=== PATIENT | male | born 1970 | race African-American/Black ===

== ENCOUNTER 2022-10-08 11:49 | Inpatient (IN) | payer MEDICAID, OTHER ==
[~2022-10-08] VITALS: Ht 172.7 cm; Wt 62.1 kg
[2022-10-08] MEDS ORDERED: VANCOMYCIN 1G PREMIX 200 ML IV ONE (12:15)
[2022-10-08] MEDS ORDERED: OSELTAMIVIR 75MG CAPSULE GT ONE (12:15)
[2022-10-08] MEDS ORDERED: ACETAMINOPHEN 325MG TABLET GT ONE (12:15)
[2022-10-08] MEDS ORDERED: PIPERACILLIN/TAZ 3.375G PREMIX 50 ML IV ONE (12:15)
[2022-10-08] MEDS ORDERED: SODIUM CHLORIDE 0.9% 1000ML BAG (SEPSIS BOLUS) IV ONE (12:15)
[2022-10-08 12:46] LABS: BASOPHILS % 0.8 % (0.0-2.0); EOSINOPHILS % 0.1 % (0.0-5.0); HEMOGLOBIN. 10.8 g/dL (14.0-18.0); LYMPHOCYTES % 10.9 % (20.0-50.0); MEAN CORPUSCULAR HEMOGLOBIN 28.3 pg (28.0-32.0); MEAN CORPUSCULAR VOLUME 89.1 fL (80.0-94.0); MEAN PLATELET VOLUME 8.5 fl (7.4-10.4); MONOCYTES % 5.9 % (2.0-8.0); NEUTROPHILS % 82.3 % (40.0-76.0); PLATELET 326 x1000/uL (130-400); RED BLOOD CELL COUNT 3.82 mill/uL (4.7-6.1); RED CELL DISTRIBUTION WIDTH 14.9 % (11.6-14.6)
[2022-10-08 12:55] LABS: CHLORIDE 130 mEq/L (98-107)
[2022-10-08 13:04] LABS: INR 1.7; PARTIAL THROMBOPLASTIN TIME 36.7 sec (23.4-31.0); PROTHROMBIN TIME 17.2 sec (9.6-11.0)
[2022-10-08] MEDS ORDERED: GUAIFENESIN 200MG/10ML SUGAR FREE UDC PO PRN (15:30)
[2022-10-08] MEDS ORDERED: ONDANSETRON HCL 4MG/2ML INJ IV PRN (15:30)
[2022-10-08] MEDS ORDERED: DEXTROSE 5% WATER 1,000 ML IV SCH (15:30)
[2022-10-08] MEDS ORDERED: CLONIDINE 0.1MG TABLET PO PRN (15:30)
[2022-10-08] MEDS ORDERED: IPRATROPIUM/ALBUTEROL 0.5-3(2.5)MG/3ML NEB HHN PRN (15:30)
[2022-10-08] MEDS ORDERED: DOCUSATE SODIUM 100MG CAPSULE PO PRN (15:30)
[2022-10-08] MEDS ORDERED: MAGNESIUM/ALUMINUM HYDROXIDE/SIMETHICONE 30ML UDC PO PRN (15:30)
[2022-10-08 15:49] LABS: BG BASE EXCESS 1.3 mmol/L (-2.0-2.0); BG CARBOXYHEMOGLOBIN 0.3 % (0.5-1.5); BG DEOXYHEMOGLOBIN 0.2 % (0.0-5.0); BG FRACTION INSPIRED OXYGEN 100; BG HCO3 ACT 25.3 mmol/L (22.0-26.0); BG METHEMOGLOBIN 0.3 % (0.0-1.5); BG OXYGEN SATURATION 99.8 % (92.0-98.5); BG OXYHEMOGLOBIN 99.2 % (94.0-97.0); BG PCO2 37.8 mmHg (35.0-45.0); BG PH 7.444 (7.350-7.450); BG PO2 365.3 mmHg (75.0-100.0); BG SAMPLE SITE RIGHT RADIAL; BG TOTAL HEMOGLOBIN 10.4 g/dL (12.0-18.0); BG VENT MODE VENT - AC
[2022-10-08] MEDS: DEXTROSE 5% WATER 1,000 ML IV SCH (16:12)
[2022-10-08 20:12] LABS: CLARITY URINE CLEAR (CLEAR); COLOR URINE YELLOW (YELLOW); KETONES URINE NEGATIVE (NEGATIVE); LEUKOCYTE ESTERASE URINE NEGATIVE (NEGATIVE); NITRITE URINE NEGATIVE (NEGATIVE); OCCULT BLOOD URINE 1+ (NEGATIVE); PH URINE 5.5 (4.5-8.0); PROTEIN URINE TRACE (NEGATIVE); SPECIFIC GRAVITY URINE 1.017 (1.005-1.030); UROBILINOGEN URINE 0.2 E.U./dL (0.2-1.0)
[2022-10-08] MEDS: ACETAMINOPHEN 325MG TABLET PO PRN (20:30)
[2022-10-08] MEDS: BLOOD SUGAR DIAGNOSTIC STRIP TEST SCH (21:14)
[2022-10-08] MEDS: INSULIN LISPRO 100 UNITS/ML SUBCUT SCH (21:14)
[2022-10-08] MEDS ORDERED: DEXTROSE 50% WATER 50ML SYRINGE IV PRN (21:15)
[2022-10-09] MEDS: DEXTROSE 5% WATER 1,000 ML IV SCH ×3 (03:03→22:21)
[2022-10-09] MEDS: MIDODRINE HCL 5MG TABLET GT SCH ×3 (03:21→18:22)
[2022-10-09 05:26] LABS: BASOPHILS % 0.7 % (0.0-2.0); EOSINOPHILS % 0.1 % (0.0-5.0); HEMOGLOBIN. 8.4 g/dL (14.0-18.0); LYMPHOCYTES % 10.8 % (20.0-50.0); MEAN CORPUSCULAR HEMOGLOBIN 28.4 pg (28.0-32.0); MEAN CORPUSCULAR VOLUME 88.6 fL (80.0-94.0); MEAN PLATELET VOLUME 9.4 fl (7.4-10.4); MONOCYTES % 6.6 % (2.0-8.0); NEUTROPHILS % 81.8 % (40.0-76.0); PLATELET 264 x1000/uL (130-400); RED BLOOD CELL COUNT 2.94 mill/uL (4.7-6.1); RED CELL DISTRIBUTION WIDTH 14.8 % (11.6-14.6)
[2022-10-09 05:32] LABS: CHLORIDE 120 mEq/L (98-107)
[2022-10-09 05:52] LABS: T4 FREE 1.05 ng/dL (0.76-1.46)
[2022-10-09] MEDS ORDERED: IPRATROPIUM/ALBUTEROL 0.5-3(2.5)MG/3ML NEB HHN PRN (06:00)
[2022-10-09] MEDS: BLOOD SUGAR DIAGNOSTIC STRIP TEST SCH ×3 (06:00→22:21)
[2022-10-09] MEDS: INSULIN LISPRO 100 UNITS/ML SUBCUT SCH ×3 (06:00→22:00)
[2022-10-09] MEDS: PIPERACILLIN/TAZ 3.375G PREMIX 50 ML IV SCH ×3 (07:07→21:59)
[2022-10-09] MEDS: ACETAMINOPHEN 325MG TABLET PO PRN ×3 (07:15→22:00)
[2022-10-09] MEDS: IPRATROPIUM/ALBUTEROL 0.5-3(2.5)MG/3ML NEB HHN SCH ×3 (07:59→20:11)
[2022-10-09] MEDS: KCL 20MEQ/100ML PREMIX 100 ML IV SCH ×2 (09:43→11:27)
[2022-10-09] MEDS: PANTOPRAZOLE SODIUM 40 MG/VIAL IV SCH (09:43)
[2022-10-09] MEDS: VANCOMYCIN 1G PREMIX 200 ML IV SCH ×2 (11:43→21:58)
[2022-10-09 16:30] VITALS: BP 119/76
[2022-10-09 18:00] VITALS: BP 116/73
[2022-10-09] MEDS: ENOXAPARIN 40MG/0.4ML SYR SUBCUT SCH (18:21)
[2022-10-09 20:00] VITALS: BP_SYST 134; BP_SYST 137; BP_DIAS 72; BP_DIAS 73
[2022-10-09] MEDS ORDERED: FAMO-135 GT (21:15)
[2022-10-09] MEDS ORDERED: GLYC2TAB21 GT (21:15)
[2022-10-09] MEDS ORDERED: AMAN100T GT (21:15)
[2022-10-09] MEDS ORDERED: DOCU-138 GT (21:15)
[2022-10-09] MEDS ORDERED: ENOX40SY27 SQ (21:15)
[2022-10-09] MEDS ORDERED: TERA2CAP4 GT (21:16)
[2022-10-09 22:00] VITALS: BP 105/60
[2022-10-10] VITALS (12 sets, daily range): BP systolic 99–126; BP diastolic 51–77
[2022-10-10] MEDS: IPRATROPIUM/ALBUTEROL 0.5-3(2.5)MG/3ML NEB HHN SCH ×4 (01:51→20:19)
[2022-10-10] MEDS: PIPERACILLIN/TAZ 3.375G PREMIX 50 ML IV SCH (05:21)
[2022-10-10] MEDS: INSULIN LISPRO 100 UNITS/ML SUBCUT SCH ×3 (05:39→22:00)
[2022-10-10] MEDS: BLOOD SUGAR DIAGNOSTIC STRIP TEST SCH ×3 (05:40→22:37)
[2022-10-10 08:25] LABS: BASOPHILS % 0.5 % (0.0-2.0); EOSINOPHILS % 0.3 % (0.0-5.0); HEMATOCRIT. 24.4 % (42.0-52.0); HEMOGLOBIN. 7.9 g/dL (14.0-18.0); MEAN CORPUSCULAR HEMOGLOBIN 28.4 pg (28.0-32.0); MEAN CORPUSCULAR VOLUME 87.7 fL (80.0-94.0); MONOCYTES % 6.3 % (2.0-8.0); NEUTROPHILS % 83.9 % (40.0-76.0); PLATELET 219 x1000/uL (130-400); RED BLOOD CELL COUNT 2.79 mill/uL (4.7-6.1); RED CELL DISTRIBUTION WIDTH 14.6 % (11.6-14.6)
[2022-10-10 08:33] LABS: CHLORIDE 119 mEq/L (98-107)
[2022-10-10 08:40] LABS: PHOSPHORUS 2.8 mg/dL (2.5-4.9)
[2022-10-10] MEDS: PANTOPRAZOLE SODIUM 40 MG/VIAL IV SCH (08:47)
[2022-10-10] MEDS: MIDODRINE HCL 5MG TABLET GT SCH ×3 (08:51→16:52)
[2022-10-10] MEDS: VANCOMYCIN 750MG PREMIX 150 ML IV SCH ×2 (10:23→21:29)
[2022-10-10] MEDS: ACETAMINOPHEN 325MG TABLET PO PRN ×2 (13:57→16:50)
[2022-10-10] MEDS: PIPERACILLIN/TAZOBACTAM 3.375G in DEXT 5% WATER 50ML IV SCH ×2 (13:57→21:25)
[2022-10-10] MEDS: DEXTROSE 5% WATER 1,000 ML IV SCH ×2 (13:58→17:44)
[2022-10-10] MEDS: KCL 20MEQ/100ML PREMIX 100 ML IV SCH ×2 (15:37→17:29)
[2022-10-10] MEDS: ENOXAPARIN 40MG/0.4ML SYR SUBCUT SCH (16:51)
[2022-10-11] VITALS (12 sets, daily range): BP systolic 90–146; BP diastolic 51–103
[2022-10-11] MEDS: IPRATROPIUM/ALBUTEROL 0.5-3(2.5)MG/3ML NEB HHN SCH ×4 (01:39→20:23)
[2022-10-11 06:00] LABS: CHLORIDE 112 mEq/L (98-107)
[2022-10-11] MEDS: INSULIN LISPRO 100 UNITS/ML SUBCUT SCH ×3 (06:00→21:13)
[2022-10-11] MEDS: BLOOD SUGAR DIAGNOSTIC STRIP TEST SCH ×3 (06:09→21:13)
[2022-10-11] MEDS: PIPERACILLIN/TAZOBACTAM 3.375G in DEXT 5% WATER 50ML IV SCH ×3 (06:09→21:13)
[2022-10-11 06:10] LABS: PHOSPHORUS 2.7 mg/dL (2.5-4.9)
[2022-10-11 06:13] LABS: BASOPHILS % 0.7 % (0.0-2.0); EOSINOPHILS % 0.5 % (0.0-5.0); HEMATOCRIT. 22.9 % (42.0-52.0); HEMOGLOBIN. 7.5 g/dL (14.0-18.0); LYMPHOCYTES % 7.4 % (20.0-50.0); MEAN CORPUSCULAR HEMOGLOBIN 28.4 pg (28.0-32.0); MONOCYTES % 7.4 % (2.0-8.0); PLATELET 213 x1000/uL (130-400); RED BLOOD CELL COUNT 2.63 mill/uL (4.7-6.1); RED CELL DISTRIBUTION WIDTH 14.8 % (11.6-14.6)
[2022-10-11 09:28] LABS: BG BASE EXCESS 2.8 mmol/L (-2.0-2.0); BG CARBOXYHEMOGLOBIN 0.3 % (0.5-1.5); BG DEOXYHEMOGLOBIN 2.9 % (0.0-5.0); BG FRACTION INSPIRED OXYGEN 40; BG HCO3 ACT 26.7 mmol/L (22.0-26.0); BG METHEMOGLOBIN 0.5 % (0.0-1.5); BG OXYGEN SATURATION 97.1 % (92.0-98.5); BG OXYHEMOGLOBIN 96.3 % (94.0-97.0); BG PCO2 38.1 mmHg (35.0-45.0); BG PH 7.464 (7.350-7.450); BG PO2 93.4 mmHg (75.0-100.0); BG SAMPLE SITE RIGHT RADIAL; BG TOTAL HEMOGLOBIN 8.6 g/dL (12.0-18.0); BG VENT MODE VENT - AC
[2022-10-11] MEDS: VANCOMYCIN 750MG PREMIX 150 ML IV SCH ×2 (09:49→21:13)
[2022-10-11] MEDS: MIDODRINE HCL 5MG TABLET GT SCH ×3 (09:50→16:56)
[2022-10-11] MEDS: PANTOPRAZOLE SODIUM 40 MG/VIAL IV SCH (09:50)
[2022-10-11] MEDS: ACETAMINOPHEN 325MG TABLET PO PRN ×2 (15:26→21:50)
[2022-10-11] MEDS: ENOXAPARIN 40MG/0.4ML SYR SUBCUT SCH (16:56)
[2022-10-12] VITALS (12 sets, daily range): BP systolic 103–137; BP diastolic 48–87
[2022-10-12] MEDS: IPRATROPIUM/ALBUTEROL 0.5-3(2.5)MG/3ML NEB HHN SCH ×4 (02:17→20:39)
[2022-10-12 05:24] LABS: CHLORIDE 116 mEq/L (98-107)
[2022-10-12] MEDS: INSULIN LISPRO 100 UNITS/ML SUBCUT SCH ×3 (05:35→21:39)
[2022-10-12] MEDS: BLOOD SUGAR DIAGNOSTIC STRIP TEST SCH ×3 (05:35→21:39)
[2022-10-12] MEDS: PIPERACILLIN/TAZOBACTAM 3.375G in DEXT 5% WATER 50ML IV SCH ×3 (05:36→21:39)
[2022-10-12] MEDS: PANTOPRAZOLE SODIUM 40 MG/VIAL IV SCH (09:04)
[2022-10-12] MEDS: VANCOMYCIN 750MG PREMIX 150 ML IV SCH ×2 (09:04→21:39)
[2022-10-12] MEDS: MIDODRINE HCL 5MG TABLET GT SCH ×3 (09:05→17:33)
[2022-10-12] MEDS: ENOXAPARIN 40MG/0.4ML SYR SUBCUT SCH (17:33)
[2022-10-13] VITALS (12 sets, daily range): BP systolic 92–120; BP diastolic 51–71
[2022-10-13] MEDS: IPRATROPIUM/ALBUTEROL 0.5-3(2.5)MG/3ML NEB HHN SCH ×4 (01:20→20:00)
[2022-10-13] MEDS: INSULIN LISPRO 100 UNITS/ML SUBCUT SCH ×3 (05:36→21:57)
[2022-10-13] MEDS: BLOOD SUGAR DIAGNOSTIC STRIP TEST SCH ×3 (05:36→21:57)
[2022-10-13] MEDS: PIPERACILLIN/TAZOBACTAM 3.375G in DEXT 5% WATER 50ML IV SCH (05:36)
[2022-10-13 08:02] LABS: BASOPHILS % 0.9 % (0.0-2.0); EOSINOPHILS % 0.2 % (0.0-5.0); HEMATOCRIT. 25.5 % (42.0-52.0); HEMOGLOBIN. 8.5 g/dL (14.0-18.0); LYMPHOCYTES % 8.1 % (20.0-50.0); MEAN CORPUSCULAR HEMOGLOBIN 28.9 pg (28.0-32.0); MEAN CORPUSCULAR VOLUME 86.6 fL (80.0-94.0); MEAN PLATELET VOLUME 9.2 fl (7.4-10.4); MONOCYTES % 8.2 % (2.0-8.0); NEUTROPHILS % 82.6 % (40.0-76.0); PLATELET 234 x1000/uL (130-400); RED BLOOD CELL COUNT 2.94 mill/uL (4.7-6.1); RED CELL DISTRIBUTION WIDTH 14.7 % (11.6-14.6)
[2022-10-13 08:04] LABS: CHLORIDE 112 mEq/L (98-107)
[2022-10-13 08:08] LABS: PHOSPHORUS 2.6 mg/dL (2.5-4.9)
[2022-10-13] MEDS: PANTOPRAZOLE SODIUM 40 MG/VIAL IV SCH (10:05)
[2022-10-13] MEDS: MIDODRINE HCL 5MG TABLET GT SCH ×3 (10:06→18:13)
[2022-10-13] MEDS: VANCOMYCIN 750MG PREMIX 150 ML IV SCH (10:22)
[2022-10-13] MEDS: MEROPENEM 1,000 MG in SODIUM CHLORIDE 0.9% 100 ML IV SCH ×2 (11:03→18:13)
[2022-10-13] MEDS: ENOXAPARIN 40MG/0.4ML SYR SUBCUT SCH (18:14)
[2022-10-14] VITALS (13 sets, daily range): BP systolic 97–151; BP diastolic 51–88
[2022-10-14] MEDS: MEROPENEM 1,000 MG in SODIUM CHLORIDE 0.9% 100 ML IV SCH ×3 (01:21→18:39)
[2022-10-14] MEDS: FAMOTIDINE 20MG/2ML VIAL IV SCH ×3 (01:22→21:55)
[2022-10-14] MEDS: ACETAMINOPHEN 325MG TABLET PO PRN ×2 (01:22→15:53)
[2022-10-14] MEDS: IPRATROPIUM/ALBUTEROL 0.5-3(2.5)MG/3ML NEB HHN SCH ×4 (01:58→20:02)
[2022-10-14 05:38] LABS: BASOPHILS % 1.3 % (0.0-2.0); EOSINOPHILS % 0.3 % (0.0-5.0); HEMATOCRIT. 24.3 % (42.0-52.0); HEMOGLOBIN. 7.9 g/dL (14.0-18.0); LYMPHOCYTES % 11.7 % (20.0-50.0); MEAN CORPUSCULAR HEMOGLOBIN 28.1 pg (28.0-32.0); MEAN CORPUSCULAR VOLUME 86.3 fL (80.0-94.0); MEAN PLATELET VOLUME 8.8 fl (7.4-10.4); MONOCYTES % 7.6 % (2.0-8.0); NEUTROPHILS % 79.1 % (40.0-76.0); PLATELET 248 x1000/uL (130-400); RED BLOOD CELL COUNT 2.82 mill/uL (4.7-6.1); RED CELL DISTRIBUTION WIDTH 14.8 % (11.6-14.6)
[2022-10-14] MEDS: INSULIN LISPRO 100 UNITS/ML SUBCUT SCH ×3 (06:00→21:56)
[2022-10-14] MEDS: BLOOD SUGAR DIAGNOSTIC STRIP TEST SCH ×3 (06:44→21:56)
[2022-10-14 07:09] LABS: CHLORIDE 112 mEq/L (98-107)
[2022-10-14 07:20] LABS: PHOSPHORUS 2.8 mg/dL (2.5-4.9)
[2022-10-14] MEDS: MIDODRINE HCL 5MG TABLET GT SCH ×4 (08:31→17:09)
[2022-10-14 08:46] LABS: BG BASE EXCESS 7.1 mmol/L (-2.0-2.0); BG DEOXYHEMOGLOBIN 2.9 % (0.0-5.0); BG FRACTION INSPIRED OXYGEN 30; BG HCO3 ACT 30.7 mmol/L (22.0-26.0); BG METHEMOGLOBIN 0.3 % (0.0-1.5); BG OXYGEN SATURATION 97.1 % (92.0-98.5); BG OXYHEMOGLOBIN 96.8 % (94.0-97.0); BG PCO2 39.3 mmHg (35.0-45.0); BG PO2 93.2 mmHg (75.0-100.0); BG SAMPLE SITE RIGHT RADIAL; BG TOTAL HEMOGLOBIN 8.4 g/dL (12.0-18.0); BG TOTAL RESPIRATORY RATE 20 b/min; BG VENT MODE VENT - SIMV
[2022-10-14] MEDS: ENOXAPARIN 40MG/0.4ML SYR SUBCUT SCH (15:54)
[2022-10-15] VITALS (12 sets, daily range): BP systolic 91–150; BP diastolic 49–89
[2022-10-15] MEDS: ACETYLCYSTEINE 100MG/ML 10% VIAL 4ML INH SCH ×4 (01:30→13:49)
[2022-10-15] MEDS: IPRATROPIUM/ALBUTEROL 0.5-3(2.5)MG/3ML NEB HHN SCH ×4 (01:32→20:19)
[2022-10-15] MEDS: MEROPENEM 1,000 MG in SODIUM CHLORIDE 0.9% 100 ML IV SCH ×3 (02:02→18:20)
[2022-10-15] MEDS: INSULIN LISPRO 100 UNITS/ML SUBCUT SCH ×3 (06:00→20:39)
[2022-10-15] MEDS: BLOOD SUGAR DIAGNOSTIC STRIP TEST SCH ×3 (06:00→20:39)
[2022-10-15 06:13] LABS: CHLORIDE 112 mEq/L (98-107)
[2022-10-15 06:19] LABS: PHOSPHORUS 2.9 mg/dL (2.5-4.9)
[2022-10-15 06:23] LABS: EOSINOPHILS % 0.1 % (0.0-5.0); HEMATOCRIT. 23.7 % (42.0-52.0); LYMPHOCYTES % 10.6 % (20.0-50.0); MEAN CORPUSCULAR VOLUME 85.3 fL (80.0-94.0); MEAN PLATELET VOLUME 8.6 fl (7.4-10.4); MONOCYTES % 6.7 % (2.0-8.0); NEUTROPHILS % 81.6 % (40.0-76.0); PLATELET 284 x1000/uL (130-400); RED BLOOD CELL COUNT 2.77 mill/uL (4.7-6.1); RED CELL DISTRIBUTION WIDTH 14.9 % (11.6-14.6)
[2022-10-15 08:58] LABS: BG BASE EXCESS 9.7 mmol/L (-2.0-2.0); BG CARBOXYHEMOGLOBIN 0.3 % (0.5-1.5); BG DEOXYHEMOGLOBIN 3.5 % (0.0-5.0); BG FRACTION INSPIRED OXYGEN 30; BG HCO3 ACT 33.8 mmol/L (22.0-26.0); BG OXYGEN SATURATION 96.5 % (92.0-98.5); BG OXYHEMOGLOBIN 96.2 % (94.0-97.0); BG PCO2 44.6 mmHg (35.0-45.0); BG PH 7.498 (7.350-7.450); BG PO2 86.5 mmHg (75.0-100.0); BG SAMPLE SITE RIGHT RADIAL; BG TOTAL HEMOGLOBIN 7.4 g/dL (12.0-18.0); BG VENT MODE VENT - SIMV
[2022-10-15] MEDS: MIDODRINE HCL 5MG TABLET GT SCH ×3 (09:36→18:15)
[2022-10-15] MEDS: FAMOTIDINE 20MG/2ML VIAL IV SCH ×2 (09:36→20:39)
[2022-10-15] MEDS: ENOXAPARIN 40MG/0.4ML SYR SUBCUT SCH (15:02)
[2022-10-15 19:11] LABS: BG BASE EXCESS 6.6 mmol/L (-2.0-2.0); BG CARBOXYHEMOGLOBIN 0.3 % (0.5-1.5); BG DEOXYHEMOGLOBIN 3.2 % (0.0-5.0); BG FRACTION INSPIRED OXYGEN 30; BG HCO3 ACT 30.6 mmol/L (22.0-26.0); BG METHEMOGLOBIN 0.3 % (0.0-1.5); BG OXYGEN SATURATION 96.8 % (92.0-98.5); BG OXYHEMOGLOBIN 96.2 % (94.0-97.0); BG PCO2 41.3 mmHg (35.0-45.0); BG PH 7.487 (7.350-7.450); BG PO2 90.7 mmHg (75.0-100.0); BG SAMPLE SITE RIGHT RADIAL; BG VENT MODE VENT - SIMV
[2022-10-16] VITALS (12 sets, daily range): BP systolic 92–117; BP diastolic 42–73
[2022-10-16] MEDS: IPRATROPIUM/ALBUTEROL 0.5-3(2.5)MG/3ML NEB HHN SCH ×4 (01:31→19:49)
[2022-10-16] MEDS: MEROPENEM 1,000 MG in SODIUM CHLORIDE 0.9% 100 ML IV SCH ×3 (01:53→17:38)
[2022-10-16] MEDS: BLOOD SUGAR DIAGNOSTIC STRIP TEST SCH ×3 (05:31→21:06)
[2022-10-16] MEDS: INSULIN LISPRO 100 UNITS/ML SUBCUT SCH ×3 (05:31→21:06)
[2022-10-16 07:07] LABS: BASOPHILS % 0.6 % (0.0-2.0); EOSINOPHILS % 0.1 % (0.0-5.0); HEMATOCRIT. 23.3 % (42.0-52.0); HEMOGLOBIN. 7.9 g/dL (14.0-18.0); LYMPHOCYTES % 10.1 % (20.0-50.0); MEAN CORPUSCULAR HEMOGLOBIN 28.9 pg (28.0-32.0); MEAN CORPUSCULAR VOLUME 85.1 fL (80.0-94.0); MEAN PLATELET VOLUME 8.2 fl (7.4-10.4); MONOCYTES % 6.3 % (2.0-8.0); NEUTROPHILS % 82.9 % (40.0-76.0); PLATELET 338 x1000/uL (130-400); RED BLOOD CELL COUNT 2.74 mill/uL (4.7-6.1); RED CELL DISTRIBUTION WIDTH 14.8 % (11.6-14.6)
[2022-10-16 08:16] LABS: CHLORIDE 112 mEq/L (98-107)
[2022-10-16 08:25] LABS: PHOSPHORUS 2.5 mg/dL (2.5-4.9)
[2022-10-16] MEDS: FAMOTIDINE 20MG/2ML VIAL IV SCH ×2 (10:04→21:09)
[2022-10-16] MEDS: MIDODRINE HCL 5MG TABLET GT SCH ×3 (10:05→17:38)
[2022-10-16] MEDS: ENOXAPARIN 40MG/0.4ML SYR SUBCUT SCH (17:38)
== END 2022-10-17 00:11 | DRG 720 ==
LOC: ER 11:49 → CVICU 14:58 → EDBEDREQTM 15:00 → EDBEDREQ 15:00 → ENRESERV 16:15 → EDBEDREQSVC 17:21 → MICUSO 18:28 → 5EST 10-09 15:30
PROVIDERS: ADMIT Hospitalist; ATTEND Hospitalist
PROC: 5A1955Z Respiratory Ventilation, Greater than 96 Consecutive Hours (ICD-10-PCS; principal; 2022-10-09)
DX: A41.9 Sepsis, unspecified organism (principal); J96.21 Acute and chronic respiratory failure with hypoxia; E43 Unspecified severe protein-calorie malnutrition; J18.9 Pneumonia, unspecified organism; G82.50 Quadriplegia, unspecified; L89.150 Pressure ulcer of sacral region, unstageable; D68.9 Coagulation defect, unspecified; E87.1 Hypo-osmolality and hyponatremia; Z20.822 Contact with and (suspected) exposure to COVID-19; E87.0 Hyperosmolality and hypernatremia; E03.9 Hypothyroidism, unspecified; E11.9 Type 2 diabetes mellitus without complications; G20 Parkinson's disease; I10 Essential (primary) hypertension; E86.0 Dehydration; R13.10 Dysphagia, unspecified; D64.9 Anemia, unspecified; E05.90 Thyrotoxicosis, unspecified without thyrotoxic crisis or storm; E86.1 Hypovolemia; R74.01 Elevation of levels of liver transaminase levels; Z68.20 Body mass index [BMI] 20.0-20.9, adult; Z93.1 Gastrostomy status; Z93.0 Tracheostomy status; Y95 Nosocomial condition
CPT/HCPCS: 36415; 36600; 71045; 80048; 80053; 80202; 81003; 82040; 82375; 82805; 82962; 83036; 83605; 83735; 83880; 84100; 84134; 84145; 84439; 84443; 84484; 85025; 87070; 87077; 87186; 87426; 87804; 93005; 93970; 94003; 94640; 99291; A6261; C9113; C9803; J1650; J2185; J2405; J2543; J3370; J3480; J3490; J7030; J7050; J7060; J7070

== ENCOUNTER 2022-12-07 07:08 | Inpatient (IN) | payer MEDICAID, OTHER ==
[~2022-12-07] VITALS: Ht 170.2 cm; Wt 63.7 kg
[2022-12-07] MEDS ORDERED: VANCOMYCIN 1G PREMIX 200 ML IV ONE (07:15)
[2022-12-07] MEDS ORDERED: PIPERACILLIN/TAZ 3.375G PREMIX 50 ML IV ONE (07:15)
[2022-12-07] MEDS ORDERED: IPRATROPIUM BROMIDE (0.02%) 0.5MG/2.5ML NEB HHN STA (07:15)
[2022-12-07] MEDS: ALBUTEROL (0.083%) 2.5MG/3ML NEB HHN SCH ×3 (07:50→08:30)
[2022-12-07 09:05] LABS: HEMATOCRIT. 28.1 % (42.0-52.0); HEMOGLOBIN. 8.9 g/dL (14.0-18.0); MEAN CORPUSCULAR HEMOGLOBIN 25.2 pg (28.0-32.0); MEAN CORPUSCULAR VOLUME 79.6 fL (80.0-94.0); MEAN PLATELET VOLUME 6.9 fl (7.4-10.4); PLATELET 584 x1000/uL (130-400); RED BLOOD CELL COUNT 3.53 mill/uL (4.7-6.1); RED CELL DISTRIBUTION WIDTH 15.7 % (11.6-14.6)
[2022-12-07 09:15] LABS: CHLORIDE 88 mEq/L (98-107)
[2022-12-07 09:16] LABS: INR 1.2; PROTHROMBIN TIME 13.2 sec (9.6-11.0)
[2022-12-07] MEDS ORDERED: ENOXAPARIN 100MG/ML SYR SUBCUT ONE (09:45)
[2022-12-07] MEDS ORDERED: SODIUM CHLORIDE 0.9% 1000ML BAG (SEPSIS BOLUS) IV ONE (09:45)
[2022-12-07 09:57] LABS: PLATELET ESTIMATE INCREASED
[2022-12-07] MEDS ORDERED: PIPERACILLIN/TAZ 3.375G PREMIX 50 ML IV NR (10:20)
[2022-12-07] MEDS ORDERED: VANCOMYCIN 1G PREMIX 200 ML IV NR (10:22)
[2022-12-07 10:31] LABS: CLARITY URINE CLEAR (CLEAR); COLOR URINE YELLOW (YELLOW); KETONES URINE NEGATIVE (NEGATIVE); LEUKOCYTE ESTERASE URINE NEGATIVE (NEGATIVE); NITRITE URINE NEGATIVE (NEGATIVE); OCCULT BLOOD URINE NEGATIVE (NEGATIVE); PH URINE 6.5 (4.5-8.0); PROTEIN URINE TRACE (NEGATIVE); SPECIFIC GRAVITY URINE 1.012 (1.005-1.030)
[2022-12-07 11:39] LABS: BG BASE EXCESS 5.6 mmol/L (-2.0-2.0); BG CARBOXYHEMOGLOBIN 0.5 % (0.5-1.5); BG DEOXYHEMOGLOBIN 0.3 % (0.0-5.0); BG FRACTION INSPIRED OXYGEN 100; BG METHEMOGLOBIN 0.3 % (0.0-1.5); BG OXYGEN SATURATION 99.7 % (92.0-98.5); BG OXYHEMOGLOBIN 98.9 % (94.0-97.0); BG PCO2 50.6 mmHg (35.0-45.0); BG PH 7.405 (7.350-7.450); BG PO2 301.2 mmHg (75.0-100.0); BG SAMPLE SITE RIGHT RADIAL; BG TOTAL HEMOGLOBIN 7.4 g/dL (12.0-18.0); BG VENT MODE VENT - AC
[2022-12-07] MEDS ORDERED: ONDANSETRON HCL 4MG/2ML INJ IV PRN (12:00)
[2022-12-07] MEDS ORDERED: CLONIDINE 0.1MG TABLET PO PRN (12:00)
[2022-12-07] MEDS ORDERED: ACETAMINOPHEN 325MG TABLET PO PRN (12:00)
[2022-12-07] MEDS ORDERED: NITROGLYCERIN 0.4MG TABLET SL SL PRN (12:00)
[2022-12-07] MEDS ORDERED: MAGNESIUM/ALUMINUM HYDROXIDE/SIMETHICONE 30ML UDC PO PRN (12:00)
[2022-12-07] MEDS ORDERED: GUAIFENESIN 200MG/10ML SUGAR FREE UDC PO PRN (12:00)
[2022-12-07] MEDS ORDERED: IPRATROPIUM/ALBUTEROL 0.5-3(2.5)MG/3ML NEB NEB PRN (12:00)
[2022-12-07] MEDS ORDERED: DOCUSATE SODIUM 100MG CAPSULE PO PRN (12:00)
[2022-12-07] MEDS: SODIUM CHLORIDE 0.9% 1,000 ML IV SCH (12:31)
[2022-12-07] MEDS: MEROPENEM 1,000 MG in SODIUM CHLORIDE 0.9% 100 ML IV SCH ×2 (12:31→23:41)
[2022-12-07] MEDS: ENOXAPARIN 40MG/0.4ML SYR SUBCUT SCH (12:46)
[2022-12-07] MEDS: IPRATROPIUM/ALBUTEROL 0.5-3(2.5)MG/3ML NEB HHN SCH ×3 (12:55→19:59)
[2022-12-07 14:46] LABS: FOLIC ACID (FOLATE) SERUM 8.3 ng/mL (>5.38)
[2022-12-07 16:46] LABS: TOTAL IRON BINDING CAPACITY 205 ug/dL (250-450)
[2022-12-07] MEDS: ACETYLCYSTEINE 200MG/ML 20% VIAL 4ML INH SCH ×2 (19:30→22:00)
[2022-12-07] MEDS: ASCORBIC ACID 500 MG TABLET PO SCH (21:00)
[2022-12-07] MEDS: VANCOMYCIN 750MG PREMIX 150 ML IV SCH (22:00)
[2022-12-07] MEDS ORDERED: ZOLPIDEM TARTRATE 5MG TABLET PO PRN (22:00)
[2022-12-08] VITALS (31 sets, daily range): BP systolic 77–140; BP diastolic 31–92
[2022-12-08] MEDS: IPRATROPIUM/ALBUTEROL 0.5-3(2.5)MG/3ML NEB HHN SCH ×5 (00:44→20:00)
[2022-12-08] MEDS: SODIUM CHLORIDE 0.9% 1,000 ML IV SCH ×2 (01:32→15:36)
[2022-12-08] MEDS: MEROPENEM 1,000 MG in SODIUM CHLORIDE 0.9% 100 ML IV SCH ×3 (04:00→22:19)
[2022-12-08] MEDS: ACETYLCYSTEINE 200MG/ML 20% VIAL 4ML INH SCH (06:00)
[2022-12-08] MEDS: PHENYLEPHRINE 100 MG in DEXT 5% WATER 240 ML IV PRN (07:52)
[2022-12-08 08:58] LABS: BG BASE EXCESS 5.1 mmol/L (-2.0-2.0); BG CARBOXYHEMOGLOBIN 0.1 % (0.5-1.5); BG DEOXYHEMOGLOBIN 0.3 % (0.0-5.0); BG FRACTION INSPIRED OXYGEN 100; BG HCO3 ACT 29.3 mmol/L (22.0-26.0); BG METHEMOGLOBIN 0.5 % (0.0-1.5); BG OXYGEN SATURATION 99.7 % (92.0-98.5); BG OXYHEMOGLOBIN 99.1 % (94.0-97.0); BG PH 7.462 (7.350-7.450); BG PO2 297.6 mmHg (75.0-100.0); BG SAMPLE SITE RIGHT RADIAL; BG TOTAL HEMOGLOBIN 8.2 g/dL (12.0-18.0); BG VENT MODE VENT - AC
[2022-12-08] MEDS: ASPIRIN 325MG EC TABLET PO SCH (09:00)
[2022-12-08] MEDS: ASCORBIC ACID 500 MG TABLET PO SCH ×2 (09:00→21:15)
[2022-12-08] MEDS: ZINC SULFATE 220 MG ( 50 ) CAPSULE PO SCH (09:00)
[2022-12-08 09:37] LABS: CHLORIDE 93 mEq/L (98-107)
[2022-12-08] MEDS: PANTOPRAZOLE SODIUM 40 MG/VIAL IV SCH (09:41)
[2022-12-08 09:46] LABS: HEMATOCRIT. 25.2 % (42.0-52.0); HEMOGLOBIN. 7.8 g/dL (14.0-18.0); MEAN CORPUSCULAR HEMOGLOBIN 24.7 pg (28.0-32.0); MEAN CORPUSCULAR VOLUME 79.4 fL (80.0-94.0); MEAN PLATELET VOLUME 6.5 fl (7.4-10.4); PLATELET 563 x1000/uL (130-400); RED BLOOD CELL COUNT 3.17 mill/uL (4.7-6.1); RED CELL DISTRIBUTION WIDTH 15.9 % (11.6-14.6)
[2022-12-08 09:48] LABS: CREATINE KINASE 77 IU/L (39-308); CREATINE KINASE MB FRACTION 1.9 ng/mL (0.5-3.6); PHOSPHORUS 3.3 mg/dL (2.5-4.9)
[2022-12-08] MEDS: VANCOMYCIN 750MG PREMIX 150 ML IV SCH ×2 (10:00→21:15)
[2022-12-08 10:52] LABS: PLATELET ESTIMATE INCREASED
[2022-12-08] MEDS: ENOXAPARIN 40MG/0.4ML SYR SUBCUT SCH (12:30)
[2022-12-08] MEDS: MIDODRINE HCL 5MG TABLET PO SCH (18:06)
[2022-12-08] MEDS ORDERED: SODIUM CHLORIDE 0.45% 500 ML IV ONE (21:00)
[2022-12-08 21:05] LABS: BG BASE EXCESS 3.9 mmol/L (-2.0-2.0); BG CARBOXYHEMOGLOBIN 0.2 % (0.5-1.5); BG DEOXYHEMOGLOBIN 0.5 % (0.0-5.0); BG FRACTION INSPIRED OXYGEN 70; BG HCO3 ACT 28.2 mmol/L (22.0-26.0); BG METHEMOGLOBIN 0.4 % (0.0-1.5); BG OXYGEN SATURATION 99.5 % (92.0-98.5); BG OXYHEMOGLOBIN 98.9 % (94.0-97.0); BG PCO2 41.6 mmHg (35.0-45.0); BG PH 7.449 (7.350-7.450); BG PO2 226.2 mmHg (75.0-100.0); BG SAMPLE SITE RIGHT RADIAL; BG TOTAL HEMOGLOBIN 7.6 g/dL (12.0-18.0); BG TOTAL RESPIRATORY RATE 20 b/min; BG VENT MODE VENT - AC
[2022-12-08 21:07] LABS: BG PEEP (cmH2O) 5 cmH2O
[2022-12-08] MEDS: MORPHINE SULFATE 2 MG/ML CPJ (NOT FOR IM USE) IV PRN (21:17)
[2022-12-09] VITALS (101 sets, daily range): BP systolic 85–136; BP diastolic 50–88
[2022-12-09] MEDS: ACETYLCYSTEINE 200MG/ML 20% VIAL 4ML INH SCH ×2 (00:43→00:49)
[2022-12-09] MEDS: MORPHINE SULFATE 2 MG/ML CPJ (NOT FOR IM USE) IV PRN ×4 (03:20→21:00)
[2022-12-09] MEDS: SODIUM CHLORIDE 0.9% 1,000 ML IV SCH ×2 (03:20→17:03)
[2022-12-09] MEDS: IPRATROPIUM/ALBUTEROL 0.5-3(2.5)MG/3ML NEB HHN SCH ×6 (04:55→20:30)
[2022-12-09 05:32] LABS: HEMATOCRIT. 21.8 % (42.0-52.0); MEAN CORPUSCULAR HEMOGLOBIN 24.9 pg (28.0-32.0); MEAN CORPUSCULAR VOLUME 78.4 fL (80.0-94.0); MEAN PLATELET VOLUME 6.4 fl (7.4-10.4); PLATELET 513 x1000/uL (130-400); RED BLOOD CELL COUNT 2.78 mill/uL (4.7-6.1); RED CELL DISTRIBUTION WIDTH 16.2 % (11.6-14.6)
[2022-12-09 05:38] LABS: CHLORIDE 96 mEq/L (98-107)
[2022-12-09 05:53] LABS: HEMOGLOBIN. 6.9 g/dL (14.0-18.0)
[2022-12-09] MEDS: MEROPENEM 1,000 MG in SODIUM CHLORIDE 0.9% 100 ML IV SCH ×3 (06:17→21:00)
[2022-12-09 07:37] LABS: BG BASE EXCESS 2.5 mmol/L (-2.0-2.0); BG CARBOXYHEMOGLOBIN 0.1 % (0.5-1.5); BG DEOXYHEMOGLOBIN 0.6 % (0.0-5.0); BG FRACTION INSPIRED OXYGEN 50; BG HCO3 ACT 26.4 mmol/L (22.0-26.0); BG METHEMOGLOBIN 0.3 % (0.0-1.5); BG OXYGEN SATURATION 99.4 % (92.0-98.5); BG PCO2 37.4 mmHg (35.0-45.0); BG PH 7.466 (7.350-7.450); BG PO2 174.7 mmHg (75.0-100.0); BG SAMPLE SITE RIGHT RADIAL; BG TOTAL HEMOGLOBIN 7.7 g/dL (12.0-18.0); BG VENT MODE VENT - AC/VC
[2022-12-09] MEDS: ZINC SULFATE 220 MG ( 50 ) CAPSULE PO SCH (08:27)
[2022-12-09] MEDS: ASCORBIC ACID 500 MG TABLET PO SCH ×2 (08:27→21:00)
[2022-12-09] MEDS: PANTOPRAZOLE SODIUM 40 MG/VIAL IV SCH (08:27)
[2022-12-09] MEDS: ASPIRIN 325MG EC TABLET PO SCH (08:27)
[2022-12-09] MEDS: MIDODRINE HCL 5MG TABLET PO SCH ×3 (08:28→16:18)
[2022-12-09] MEDS: VANCOMYCIN 750MG PREMIX 150 ML IV SCH ×2 (08:58→17:03)
[2022-12-09] MEDS: PHENYLEPHRINE 100 MG in DEXT 5% WATER 240 ML IV PRN (10:08)
[2022-12-09 10:09] LABS: PLATELET ESTIMATE INCREASED
[2022-12-09] MEDS: ENOXAPARIN 40MG/0.4ML SYR SUBCUT SCH (12:19)
[2022-12-09] MEDS ORDERED: PHENYLEPHRINE 100 MG in DEXT 5% WATER 240 ML IV PRN (12:42)
[2022-12-09] MEDS ORDERED: MIDODRINE HCL 5MG TABLET PO NR (13:00)
[2022-12-09 15:41] LABS: HEMOGLOBIN 7.4 g/dL (14.0-18.0)
[2022-12-09 15:51] LABS: INR 1.2
[2022-12-09 19:45] LABS: BG CARBOXYHEMOGLOBIN 0.1 % (0.5-1.5); BG DEOXYHEMOGLOBIN 2.8 % (0.0-5.0); BG FRACTION INSPIRED OXYGEN 40; BG HCO3 ACT 27.4 mmol/L (22.0-26.0); BG METHEMOGLOBIN 0.8 % (0.0-1.5); BG OXYGEN SATURATION 97.2 % (92.0-98.5); BG OXYHEMOGLOBIN 96.3 % (94.0-97.0); BG PCO2 35.9 mmHg (35.0-45.0); BG SAMPLE SITE RIGHT RADIAL; BG TOTAL HEMOGLOBIN 8.7 g/dL (12.0-18.0); BG VENT MODE VENT - AC
[2022-12-10] VITALS (49 sets, daily range): BP systolic 98–131; BP diastolic 48–93
[2022-12-10] MEDS: IPRATROPIUM/ALBUTEROL 0.5-3(2.5)MG/3ML NEB HHN SCH ×6 (00:49→20:20)
[2022-12-10] MEDS: VANCOMYCIN 750MG PREMIX 150 ML IV SCH ×3 (01:10→17:01)
[2022-12-10] MEDS: MORPHINE SULFATE 2 MG/ML CPJ (NOT FOR IM USE) IV PRN ×2 (01:11→04:43)
[2022-12-10 05:32] LABS: CHLORIDE 101 mEq/L (98-107)
[2022-12-10] MEDS: MEROPENEM 1,000 MG in SODIUM CHLORIDE 0.9% 100 ML IV SCH ×3 (06:11→22:54)
[2022-12-10 07:34] LABS: BG BASE EXCESS 8.6 mmol/L (-2.0-2.0); BG DEOXYHEMOGLOBIN 3.3 % (0.0-5.0); BG FRACTION INSPIRED OXYGEN 40; BG METHEMOGLOBIN 0.5 % (0.0-1.5); BG OXYGEN SATURATION 96.7 % (92.0-98.5); BG OXYHEMOGLOBIN 96.2 % (94.0-97.0); BG PCO2 45.7 mmHg (35.0-45.0); BG PH 7.477 (7.350-7.450); BG PO2 84.4 mmHg (75.0-100.0); BG SAMPLE SITE RIGHT RADIAL; BG TOTAL HEMOGLOBIN 8.2 g/dL (12.0-18.0); BG VENT MODE VENT - AC/VC
[2022-12-10] MEDS: ACETYLCYSTEINE 200MG/ML 20% VIAL 4ML INH SCH (08:34)
[2022-12-10] MEDS: ASCORBIC ACID 500 MG TABLET PO SCH ×2 (09:00→22:54)
[2022-12-10] MEDS: ZINC SULFATE 220 MG ( 50 ) CAPSULE PO SCH ×2 (09:00→13:05)
[2022-12-10] MEDS: MIDODRINE HCL 5MG TABLET PO SCH ×3 (09:00→17:00)
[2022-12-10] MEDS: SODIUM CHLORIDE 0.9% 1,000 ML IV SCH ×2 (09:19→20:59)
[2022-12-10] MEDS: PANTOPRAZOLE SODIUM 40 MG/VIAL IV SCH (09:24)
[2022-12-10] MEDS ORDERED: POTASSIUM CHLORIDE INJ 40 MEQ in DEXT 5% WATER 250 ML IV ONE (10:30)
[2022-12-10] MEDS: KCL 20MEQ/100ML X 2 FOR TOTAL KCL 40MEQ/200ML IV SCH ×2 (11:54→13:06)
[2022-12-10] MEDS: ENOXAPARIN 40MG/0.4ML SYR SUBCUT SCH (13:05)
[2022-12-10] MEDS: IRON SUCROSE COMPLEX 100 MG/5 ML ML IV SCH (17:00)
[2022-12-10] MEDS: ACETAMINOPHEN 325MG TABLET PO PRN (20:59)
[2022-12-11] VITALS (28 sets, daily range): BP systolic 89–150; BP diastolic 53–96
[2022-12-11] MEDS: IPRATROPIUM/ALBUTEROL 0.5-3(2.5)MG/3ML NEB HHN SCH ×6 (00:14→20:00)
[2022-12-11] MEDS: ACETYLCYSTEINE 200MG/ML 20% VIAL 4ML INH SCH ×2 (00:15→08:03)
[2022-12-11] MEDS: VANCOMYCIN 750MG PREMIX 150 ML IV SCH ×3 (02:41→18:09)
[2022-12-11 05:39] LABS: BASOPHILS % 0.1 % (0.0-2.0); EOSINOPHILS % 0.4 % (0.0-5.0); HEMOGLOBIN. 7.9 g/dL (14.0-18.0); LYMPHOCYTES % 12.1 % (20.0-50.0); MEAN CORPUSCULAR HEMOGLOBIN 24.9 pg (28.0-32.0); MEAN CORPUSCULAR VOLUME 78.7 fL (80.0-94.0); MEAN PLATELET VOLUME 6.5 fl (7.4-10.4); MONOCYTES % 9.2 % (2.0-8.0); NEUTROPHILS % 78.2 % (40.0-76.0); PLATELET 385 x1000/uL (130-400); RED BLOOD CELL COUNT 3.18 mill/uL (4.7-6.1); RED CELL DISTRIBUTION WIDTH 16.2 % (11.6-14.6)
[2022-12-11 07:03] LABS: CHLORIDE 100 mEq/L (98-107)
[2022-12-11 07:40] LABS: BG BASE EXCESS 6.8 mmol/L (-2.0-2.0); BG CARBOXYHEMOGLOBIN 0.3 % (0.5-1.5); BG DEOXYHEMOGLOBIN 1.9 % (0.0-5.0); BG FRACTION INSPIRED OXYGEN 40; BG HCO3 ACT 31.9 mmol/L (22.0-26.0); BG METHEMOGLOBIN 0.5 % (0.0-1.5); BG OXYGEN SATURATION 98.1 % (92.0-98.5); BG OXYHEMOGLOBIN 97.3 % (94.0-97.0); BG PCO2 48.9 mmHg (35.0-45.0); BG PH 7.432 (7.350-7.450); BG PO2 117.7 mmHg (75.0-100.0); BG SAMPLE SITE RIGHT RADIAL; BG TOTAL HEMOGLOBIN 8.6 g/dL (12.0-18.0); BG VENT MODE VENT - AC
[2022-12-11] MEDS: KCL 20MEQ/100ML PREMIX 100 ML IV SCH ×3 (09:37→13:51)
[2022-12-11] MEDS: MIDODRINE HCL 5MG TABLET PO SCH ×3 (09:37→18:17)
[2022-12-11] MEDS: SODIUM CHLORIDE 0.9% 1,000 ML IV SCH ×2 (09:37→21:48)
[2022-12-11] MEDS: IRON SUCROSE COMPLEX 100 MG/5 ML ML IV SCH (09:38)
[2022-12-11] MEDS: PANTOPRAZOLE SODIUM 40 MG/VIAL IV SCH (09:38)
[2022-12-11] MEDS: ASCORBIC ACID 500 MG TABLET PO SCH ×2 (09:38→21:30)
[2022-12-11] MEDS: ZINC SULFATE 220 MG ( 50 ) CAPSULE PO SCH (09:38)
[2022-12-11] MEDS: ENOXAPARIN 40MG/0.4ML SYR SUBCUT SCH (13:05)
[2022-12-11] MEDS: MEROPENEM 1,000 MG in SODIUM CHLORIDE 0.9% 100 ML IV SCH ×2 (13:05→21:33)
[2022-12-11] MEDS: POLYETHYLENE GLYCOL 3350 (17GM) 1 DOSE PACK PO SCH (15:20)
[2022-12-11] MEDS: DOCUSATE SODIUM SUGAR FREE 100MG/10ML UDC PEG SCH (15:20)
[2022-12-12] VITALS (13 sets, daily range): BP systolic 109–140; BP diastolic 56–82
[2022-12-12] MEDS: VANCOMYCIN 750MG PREMIX 150 ML IV SCH ×3 (02:58→20:06)
[2022-12-12] MEDS: MEROPENEM 1,000 MG in SODIUM CHLORIDE 0.9% 100 ML IV SCH ×2 (06:23→13:00)
[2022-12-12 06:30] LABS: BASOPHILS % 0.3 % (0.0-2.0); EOSINOPHILS % 0.5 % (0.0-5.0); HEMATOCRIT. 24.4 % (42.0-52.0); HEMOGLOBIN. 7.7 g/dL (14.0-18.0); LYMPHOCYTES % 8.1 % (20.0-50.0); MEAN CORPUSCULAR HEMOGLOBIN 24.8 pg (28.0-32.0); MEAN CORPUSCULAR VOLUME 78.7 fL (80.0-94.0); MEAN PLATELET VOLUME 7.2 fl (7.4-10.4); MONOCYTES % 9.3 % (2.0-8.0); NEUTROPHILS % 81.8 % (40.0-76.0); PLATELET 376 x1000/uL (130-400); RED BLOOD CELL COUNT 3.09 mill/uL (4.7-6.1); RED CELL DISTRIBUTION WIDTH 16.2 % (11.6-14.6)
[2022-12-12 07:46] LABS: CHLORIDE 99 mEq/L (98-107)
[2022-12-12] MEDS: IPRATROPIUM/ALBUTEROL 0.5-3(2.5)MG/3ML NEB HHN SCH ×2 (08:34→12:45)
[2022-12-12] MEDS: PANTOPRAZOLE SODIUM 40 MG/VIAL IV SCH (09:13)
[2022-12-12] MEDS: DOCUSATE SODIUM SUGAR FREE 100MG/10ML UDC PEG SCH ×2 (09:14→16:17)
[2022-12-12] MEDS: IRON SUCROSE COMPLEX 100 MG/5 ML ML IV SCH (09:14)
[2022-12-12] MEDS: ZINC SULFATE 220 MG ( 50 ) CAPSULE PO SCH (09:14)
[2022-12-12] MEDS: MIDODRINE HCL 5MG TABLET PO SCH ×3 (09:14→16:17)
[2022-12-12] MEDS: ASCORBIC ACID 500 MG TABLET PO SCH ×2 (09:14→21:14)
[2022-12-12] MEDS: POLYETHYLENE GLYCOL 3350 (17GM) 1 DOSE PACK PO SCH (09:14)
[2022-12-12 09:59] LABS: BG BASE EXCESS 10.8 mmol/L (-2.0-2.0); BG CARBOXYHEMOGLOBIN 0.2 % (0.5-1.5); BG DEOXYHEMOGLOBIN 6.6 % (0.0-5.0); BG FRACTION INSPIRED OXYGEN 35; BG HCO3 ACT 34.4 mmol/L (22.0-26.0); BG METHEMOGLOBIN 0.3 % (0.0-1.5); BG OXYGEN SATURATION 93.4 % (92.0-98.5); BG OXYHEMOGLOBIN 92.9 % (94.0-97.0); BG PCO2 41.5 mmHg (35.0-45.0); BG PH 7.536 (7.350-7.450); BG PO2 64.8 mmHg (75.0-100.0); BG TOTAL HEMOGLOBIN 8.8 g/dL (12.0-18.0); BG VENT MODE VENT - AC
[2022-12-12] MEDS: SODIUM CHLORIDE 0.9% 1,000 ML IV SCH (12:56)
[2022-12-12] MEDS: ENOXAPARIN 40MG/0.4ML SYR SUBCUT SCH (12:57)
[2022-12-12] MEDS ORDERED: NALOXONE HCL 0.4MG/ML VIAL IV PRN (13:00)
[2022-12-12] MEDS ORDERED: POTASSIUM CHLORIDE 20MEQ/PACKET PO NR (13:00)
[2022-12-12] MEDS ORDERED: KCL 20MEQ/100ML PREMIX 100 ML IV NR (15:00)
[2022-12-12] MEDS: ACETAMINOPHEN 325MG TABLET PO PRN (16:16)
[2022-12-12] MEDS: CEFTAZIDIME PENTAHYDRATE 2 G in DEXT 5% WATER 100 ML IV SCH (17:45)
[2022-12-12] MEDS ORDERED: IPRATROPIUM BROMIDE (0.02%) 0.5MG/2.5ML NEB ONE (20:08)
[2022-12-12] MEDS: METRONIDAZOLE 500MG TABLET PO SCH (21:15)
[2022-12-13] VITALS (12 sets, daily range): BP systolic 98–134; BP diastolic 41–79
[2022-12-13] MEDS: ACETYLCYSTEINE 200MG/ML 20% VIAL 4ML INH SCH ×3 (00:22→15:39)
[2022-12-13] MEDS: CEFTAZIDIME PENTAHYDRATE 2 G in DEXT 5% WATER 100 ML IV SCH ×2 (07:40→09:12)
[2022-12-13] MEDS: SODIUM CHLORIDE 0.9% 1,000 ML IV SCH ×2 (07:40→14:37)
[2022-12-13] MEDS ORDERED: ALBUTEROL (0.083%) 2.5MG/3ML NEB HHN PRN (08:15)
[2022-12-13] MEDS: ALBUTEROL (0.083%) 2.5MG/3ML NEB HHN SCH ×4 (08:32→20:10)
[2022-12-13] MEDS: POLYETHYLENE GLYCOL 3350 (17GM) 1 DOSE PACK PO SCH (09:00)
[2022-12-13] MEDS: DOCUSATE SODIUM SUGAR FREE 100MG/10ML UDC PEG SCH ×2 (09:10→16:17)
[2022-12-13] MEDS: PANTOPRAZOLE SODIUM 40 MG/VIAL IV SCH (09:10)
[2022-12-13] MEDS: METRONIDAZOLE 500MG TABLET PO SCH ×2 (09:11→21:12)
[2022-12-13] MEDS: MIDODRINE HCL 5MG TABLET PO SCH ×3 (09:11→16:17)
[2022-12-13] MEDS: ZINC SULFATE 220 MG ( 50 ) CAPSULE PO SCH (09:11)
[2022-12-13] MEDS: ASCORBIC ACID 500 MG TABLET PO SCH ×2 (09:11→21:12)
[2022-12-13 11:02] LABS: BASOPHILS % 0.2 % (0.0-2.0); EOSINOPHILS % 0.3 % (0.0-5.0); HEMATOCRIT. 27.3 % (42.0-52.0); HEMOGLOBIN. 8.7 g/dL (14.0-18.0); LYMPHOCYTES % 7.9 % (20.0-50.0); MEAN CORPUSCULAR HEMOGLOBIN 25.2 pg (28.0-32.0); MEAN CORPUSCULAR VOLUME 78.8 fL (80.0-94.0); MEAN PLATELET VOLUME 7.3 fl (7.4-10.4); MONOCYTES % 5.7 % (2.0-8.0); NEUTROPHILS % 85.9 % (40.0-76.0); PLATELET 395 x1000/uL (130-400); RED BLOOD CELL COUNT 3.47 mill/uL (4.7-6.1); RED CELL DISTRIBUTION WIDTH 16.2 % (11.6-14.6)
[2022-12-13 11:38] LABS: CHLORIDE 97 mEq/L (98-107)
[2022-12-13] MEDS: ENOXAPARIN 40MG/0.4ML SYR SUBCUT SCH (12:41)
[2022-12-13] MEDS ORDERED: POTASSIUM CHLORIDE 20MEQ/PACKET PO NR (13:45)
[2022-12-13] MEDS: CEFEPIME 2,000 MG in DEXT 5% WATER 100 ML IV SCH (16:14)
[2022-12-13] MEDS ORDERED: VANCOMYCIN 1G PREMIX 200 ML IV SCH (21:30)
[2022-12-14] VITALS (12 sets, daily range): BP systolic 95–133; BP diastolic 33–70
[2022-12-14] MEDS: ALBUTEROL (0.083%) 2.5MG/3ML NEB HHN SCH ×6 (00:07→20:59)
[2022-12-14] MEDS: ACETYLCYSTEINE 200MG/ML 20% VIAL 4ML INH SCH ×4 (00:07→20:59)
[2022-12-14] MEDS: CEFEPIME 2,000 MG in DEXT 5% WATER 100 ML IV SCH ×2 (04:19→16:54)
[2022-12-14] MEDS: SODIUM CHLORIDE 0.9% 1,000 ML IV SCH ×2 (04:24→17:24)
[2022-12-14] MEDS: VANCOMYCIN 750MG PREMIX 150 ML IV SCH ×3 (06:01→21:45)
[2022-12-14] MEDS: MIDODRINE HCL 5MG TABLET PO SCH ×3 (08:48→16:43)
[2022-12-14] MEDS: DOCUSATE SODIUM SUGAR FREE 100MG/10ML UDC PEG SCH ×2 (08:49→16:44)
[2022-12-14] MEDS: METRONIDAZOLE 500MG TABLET PO SCH ×2 (08:49→20:39)
[2022-12-14] MEDS: POLYETHYLENE GLYCOL 3350 (17GM) 1 DOSE PACK PO SCH (08:49)
[2022-12-14] MEDS: PANTOPRAZOLE SODIUM 40 MG/VIAL IV SCH (08:49)
[2022-12-14] MEDS: ASCORBIC ACID 500 MG TABLET PO SCH ×2 (08:49→20:40)
[2022-12-14] MEDS: ZINC SULFATE 220 MG ( 50 ) CAPSULE PO SCH (08:50)
[2022-12-14 09:43] LABS: BG BASE EXCESS 6.2 mmol/L (-2.0-2.0); BG CARBOXYHEMOGLOBIN 0.3 % (0.5-1.5); BG DEOXYHEMOGLOBIN 1.3 % (0.0-5.0); BG FRACTION INSPIRED OXYGEN 40; BG HCO3 ACT 29.5 mmol/L (22.0-26.0); BG METHEMOGLOBIN 0.3 % (0.0-1.5); BG OXYGEN SATURATION 98.7 % (92.0-98.5); BG OXYHEMOGLOBIN 98.1 % (94.0-97.0); BG PCO2 37.3 mmHg (35.0-45.0); BG PH 7.516 (7.350-7.450); BG PO2 136.4 mmHg (75.0-100.0); BG SAMPLE SITE RIGHT RADIAL; BG TOTAL HEMOGLOBIN 8.4 g/dL (12.0-18.0); BG TOTAL RESPIRATORY RATE 23 b/min; BG VENT MODE VENT - AC
[2022-12-14] MEDS: ENOXAPARIN 40MG/0.4ML SYR SUBCUT SCH (13:24)
[2022-12-15] VITALS (11 sets, daily range): BP systolic 101–137; BP diastolic 46–86
[2022-12-15] MEDS: ALBUTEROL (0.083%) 2.5MG/3ML NEB HHN SCH ×6 (00:16→21:14)
[2022-12-15] MEDS: CEFEPIME 2,000 MG in DEXT 5% WATER 100 ML IV SCH ×2 (04:29→17:40)
[2022-12-15] MEDS: VANCOMYCIN 750MG PREMIX 150 ML IV SCH ×2 (05:23→14:27)
[2022-12-15] MEDS: SODIUM CHLORIDE 0.9% 1,000 ML IV SCH ×2 (05:24→20:39)
[2022-12-15 06:46] LABS: CHLORIDE 96 mEq/L (98-107)
[2022-12-15] MEDS: ACETYLCYSTEINE 200MG/ML 20% VIAL 4ML INH SCH ×2 (08:58→16:45)
[2022-12-15] MEDS: ZINC SULFATE 220 MG ( 50 ) CAPSULE PO SCH (09:47)
[2022-12-15] MEDS: ASCORBIC ACID 500 MG TABLET PO SCH ×2 (09:47→20:39)
[2022-12-15] MEDS: METRONIDAZOLE 500MG TABLET PO SCH ×2 (09:49→20:39)
[2022-12-15] MEDS: PANTOPRAZOLE SODIUM 40 MG/VIAL IV SCH (09:49)
[2022-12-15] MEDS: POLYETHYLENE GLYCOL 3350 (17GM) 1 DOSE PACK PO SCH (09:49)
[2022-12-15] MEDS: DOCUSATE SODIUM SUGAR FREE 100MG/10ML UDC PEG SCH ×2 (09:49→17:40)
[2022-12-15 11:12] LABS: BG BASE EXCESS 9.7 mmol/L (-2.0-2.0); BG CARBOXYHEMOGLOBIN 0.3 % (0.5-1.5); BG DEOXYHEMOGLOBIN 5.1 % (0.0-5.0); BG FRACTION INSPIRED OXYGEN 35; BG HCO3 ACT 30.9 mmol/L (22.0-26.0); BG OXYGEN SATURATION 94.9 % (92.0-98.5); BG OXYHEMOGLOBIN 94.6 % (94.0-97.0); BG PCO2 29.6 mmHg (35.0-45.0); BG PH 7.637 (7.350-7.450); BG PO2 66.6 mmHg (75.0-100.0); BG TOTAL HEMOGLOBIN 9.6 g/dL (12.0-18.0); BG VENT MODE VENT - AC
[2022-12-15] MEDS: ENOXAPARIN 40MG/0.4ML SYR SUBCUT SCH (14:26)
[2022-12-15] MEDS: MIDODRINE HCL 5MG TABLET PO SCH ×2 (14:27→17:41)
[2022-12-15] MEDS: KCL 20MEQ/100ML PREMIX 100 ML IV SCH ×2 (14:27→17:39)
[2022-12-15 16:08] LABS: BG BASE EXCESS 6.8 mmol/L (-2.0-2.0); BG CARBOXYHEMOGLOBIN 0.3 % (0.5-1.5); BG DEOXYHEMOGLOBIN 1.7 % (0.0-5.0); BG FRACTION INSPIRED OXYGEN 35; BG HCO3 ACT 28.9 mmol/L (22.0-26.0); BG METHEMOGLOBIN 0.3 % (0.0-1.5); BG OXYGEN SATURATION 98.3 % (92.0-98.5); BG OXYHEMOGLOBIN 97.7 % (94.0-97.0); BG PCO2 32.2 mmHg (35.0-45.0); BG PH 7.571 (7.350-7.450); BG PO2 112.4 mmHg (75.0-100.0); BG SAMPLE SITE RIGHT RADIAL; BG TOTAL HEMOGLOBIN 9.9 g/dL (12.0-18.0); BG VENT MODE VENT - AC
[2022-12-16] VITALS (13 sets, daily range): BP systolic 94–152; BP diastolic 53–103
[2022-12-16] MEDS: ALBUTEROL (0.083%) 2.5MG/3ML NEB HHN SCH ×5 (01:09→19:55)
[2022-12-16] MEDS ORDERED: VANCOMYCIN 1G PREMIX 200 ML IV SCH ×2 (05:00→18:00)
[2022-12-16] MEDS: CEFEPIME 2,000 MG in DEXT 5% WATER 100 ML IV SCH ×2 (05:18→17:00)
[2022-12-16 06:55] LABS: BASOPHILS % 0.7 % (0.0-2.0); EOSINOPHILS % 1.9 % (0.0-5.0); HEMOGLOBIN. 8.8 g/dL (14.0-18.0); LYMPHOCYTES % 13.1 % (20.0-50.0); MEAN CORPUSCULAR HEMOGLOBIN 25.7 pg (28.0-32.0); MEAN PLATELET VOLUME 7.4 fl (7.4-10.4); MONOCYTES % 7.9 % (2.0-8.0); NEUTROPHILS % 76.4 % (40.0-76.0); PLATELET 498 x1000/uL (130-400); RED BLOOD CELL COUNT 3.42 mill/uL (4.7-6.1); RED CELL DISTRIBUTION WIDTH 16.6 % (11.6-14.6)
[2022-12-16 07:33] LABS: CHLORIDE 97 mEq/L (98-107)
[2022-12-16] MEDS: ACETYLCYSTEINE 200MG/ML 20% VIAL 4ML INH SCH ×2 (08:09→15:56)
[2022-12-16] MEDS: METRONIDAZOLE 500MG TABLET PO SCH ×2 (08:44→21:17)
[2022-12-16] MEDS: ZINC SULFATE 220 MG ( 50 ) CAPSULE PO SCH (08:44)
[2022-12-16] MEDS: MIDODRINE HCL 5MG TABLET PO SCH ×3 (08:44→17:00)
[2022-12-16] MEDS: PANTOPRAZOLE SODIUM 40 MG/VIAL IV SCH (08:44)
[2022-12-16] MEDS: ASCORBIC ACID 500 MG TABLET PO SCH ×2 (08:45→21:17)
[2022-12-16] MEDS: DOCUSATE SODIUM SUGAR FREE 100MG/10ML UDC PEG SCH ×2 (09:00→17:00)
[2022-12-16] MEDS: POLYETHYLENE GLYCOL 3350 (17GM) 1 DOSE PACK PO SCH (09:00)
[2022-12-16 09:26] LABS: BG BASE EXCESS 8.5 mmol/L (-2.0-2.0); BG CARBOXYHEMOGLOBIN 0.2 % (0.5-1.5); BG DEOXYHEMOGLOBIN 1.4 % (0.0-5.0); BG FRACTION INSPIRED OXYGEN 35; BG HCO3 ACT 31.7 mmol/L (22.0-26.0); BG METHEMOGLOBIN 0.4 % (0.0-1.5); BG OXYGEN SATURATION 98.6 % (92.0-98.5); BG PCO2 38.4 mmHg (35.0-45.0); BG PH 7.535 (7.350-7.450); BG PO2 125.2 mmHg (75.0-100.0); BG SAMPLE SITE RIGHT RADIAL; BG TOTAL HEMOGLOBIN 8.8 g/dL (12.0-18.0); BG VENT MODE VENT - AC
[2022-12-16] MEDS ORDERED: KCL 20MEQ/100ML PREMIX 100 ML IV NR (11:30)
[2022-12-16] MEDS: SODIUM CHLORIDE 0.9% 1,000 ML IV SCH (11:55)
[2022-12-16] MEDS: ENOXAPARIN 40MG/0.4ML SYR SUBCUT SCH (13:03)
== END 2022-12-16 22:30 | DRG 720 ==
LOC: ER 07:24 → MICUSO 09:47 → EDBEDREQ 09:51 → EDBEDREQSVC 09:51 → CVICU 12-08 17:26 → 5EST 12-11 17:40
PROVIDERS: ADMIT Internal Medicine; ATTEND Internal Medicine
PROC: 5A1955Z Respiratory Ventilation, Greater than 96 Consecutive Hours (ICD-10-PCS; principal; 2022-12-08)
PROC: 30233N1 Transfusion of Nonautologous Red Blood Cells into Peripheral Vein, Percutaneous Approach (ICD-10-PCS; 2022-12-09)
PROC: 0D20XUZ Change Feeding Device in Upper Intestinal Tract, External Approach (ICD-10-PCS; 2022-12-10)
PROC: 02HV33Z Insertion of Infusion Device into Superior Vena Cava, Percutaneous Approach (ICD-10-PCS; 2022-12-13)
PROC: B548ZZA Ultrasonography of Superior Vena Cava, Guidance (ICD-10-PCS; 2022-12-13)
DX: A41.02 Sepsis due to Methicillin resistant Staphylococcus aureus (principal); J96.21 Acute and chronic respiratory failure with hypoxia; R65.21 Severe sepsis with septic shock; G92.8 Other toxic encephalopathy; G82.50 Quadriplegia, unspecified; E43 Unspecified severe protein-calorie malnutrition; J15.6 Pneumonia due to other Gram-negative bacteria; J18.9 Pneumonia, unspecified organism; I21.4 Non-ST elevation (NSTEMI) myocardial infarction; K94.23 Gastrostomy malfunction; L89.154 Pressure ulcer of sacral region, stage 4; E87.1 Hypo-osmolality and hyponatremia; D63.8 Anemia in other chronic diseases classified elsewhere; E87.20 Acidosis, unspecified; F02.80 Dementia in other diseases classified elsewhere, unspecified severity, without behavioral disturbance, psychotic disturbance, mood disturbance, and anxiety; G20 Parkinson's disease; D75.839 Thrombocytosis, unspecified; I16.0 Hypertensive urgency; J96.22 Acute and chronic respiratory failure with hypercapnia; R13.10 Dysphagia, unspecified; E11.69 Type 2 diabetes mellitus with other specified complication; I10 Essential (primary) hypertension; D50.9 Iron deficiency anemia, unspecified; E87.6 Hypokalemia; M86.9 Osteomyelitis, unspecified; R31.9 Hematuria, unspecified; J44.0 Chronic obstructive pulmonary disease with (acute) lower respiratory infection; K59.00 Constipation, unspecified; Z93.0 Tracheostomy status; Z99.11 Dependence on respirator [ventilator] status; Z68.22 Body mass index [BMI] 22.0-22.9, adult; Y95 Nosocomial condition
CPT/HCPCS: 36415; 36573; 36600; 71045; 80048; 80053; 80202; 81003; 82040; 82375; 82550; 82553; 82607; 82728; 82746; 82805; 82962; 83540; 83550; 83605; 83615; 83625; 83735; 83880; 84100; 84134; 84145; 84484; 85014; 85018; 85025; 85044; 85049; 85384; 85651; 86850; 86900; 86920; 87070; 87077; 87186; 87426; 87804; 93005; 93306; 93970; 94002; 94003; 94640; 94667; 97162; 99291; C1725; C1769; C9113; J0692; J0713; J1650; J2185; J2270; J2370; J2405; J2543; J3370; J3480; J7030; J7050; J7060; J7608; P9016; A4315

== ENCOUNTER 2023-02-12 02:45 | Inpatient (IN) | payer MEDICAID ==
[2023-02-12] VITALS (9 sets, daily range): BP systolic 81–144; BP diastolic 57–88
[~2023-02-12] VITALS: Ht 182.9 cm; Wt 54.0 kg
[2023-02-12] MEDS ORDERED: ACETAMINOPHEN 650MG SUPP PR STA (03:15)
[2023-02-12] MEDS ORDERED: VANCOMYCIN 1G PREMIX 200 ML IV ONE (03:15)
[2023-02-12] MEDS ORDERED: PIPERACILLIN/TAZ 3.375G PREMIX 50 ML IV ONE (03:15)
[2023-02-12] MEDS ORDERED: SODIUM CHLORIDE 0.9% 1000ML BAG (SEPSIS BOLUS) IV ONE (03:15)
[2023-02-12] MEDS ORDERED: MORPHINE SULFATE 4 MG/ML CPJ (NOT FOR IM USE) IV STA (03:15)
[2023-02-12 04:07] LABS: BASOPHILS % 0.1 % (0.0-2.0); HEMATOCRIT. 26.4 % (42.0-52.0); HEMOGLOBIN. 8.1 g/dL (14.0-18.0); LYMPHOCYTES % 9.6 % (20.0-50.0); MEAN CORPUSCULAR HEMOGLOBIN 24.3 pg (28.0-32.0); MEAN CORPUSCULAR VOLUME 79.1 fL (80.0-94.0); MEAN PLATELET VOLUME 7.6 fl (7.4-10.4); MONOCYTES % 2.7 % (2.0-8.0); NEUTROPHILS % 87.6 % (40.0-76.0); PLATELET 504 x1000/uL (130-400); RED BLOOD CELL COUNT 3.34 mill/uL (4.7-6.1); RED CELL DISTRIBUTION WIDTH 17.7 % (11.6-14.6)
[2023-02-12 04:21] LABS: CHLORIDE 103 mEq/L (98-107)
[2023-02-12 04:41] LABS: INR 1.2; PROTHROMBIN TIME 12.9 sec (9.6-11.0)
[2023-02-12] MEDS ORDERED: NOREPINEPHRINE 8MG/250ML PMX 250 ML IV STA (04:53)
[2023-02-12] MEDS ORDERED: ACETAMINOPHEN 650MG SUPP PR NR (05:45)
[2023-02-12 07:10] LABS: BG BASE EXCESS 10.4 mmol/L (-2.0-2.0); BG DEOXYHEMOGLOBIN 1.6 % (0.0-5.0); BG FRACTION INSPIRED OXYGEN 50; BG HCO3 ACT 36.3 mmol/L (22.0-26.0); BG METHEMOGLOBIN 0.3 % (0.0-1.5); BG OXYGEN SATURATION 98.4 % (92.0-98.5); BG OXYHEMOGLOBIN 98.1 % (94.0-97.0); BG PCO2 56.1 mmHg (35.0-45.0); BG PH 7.429 (7.350-7.450); BG PO2 132.4 mmHg (75.0-100.0); BG SAMPLE SITE RIGHT BRACHIAL; BG TOTAL HEMOGLOBIN 10.7 g/dL (12.0-18.0); BG VENT MODE VENT - AC
[2023-02-12 08:07] LABS: CLARITY URINE CLOUDY (CLEAR); COLOR URINE YELLOW (YELLOW); KETONES URINE NEGATIVE (NEGATIVE); LEUKOCYTE ESTERASE URINE 3+ (NEGATIVE); NITRITE URINE NEGATIVE (NEGATIVE); OCCULT BLOOD URINE TRACE (NEGATIVE); PH URINE >=9.0 (4.5-8.0); PROTEIN URINE 2+ (NEGATIVE); SPECIFIC GRAVITY URINE 1.017 (1.005-1.030); UROBILINOGEN URINE 0.2 E.U./dL (0.2-1.0)
[2023-02-12] MEDS ORDERED: MEROPENEM 1,000 MG in SODIUM CHLORIDE 0.9% 100 ML IV SCH (09:00)
[2023-02-12] MEDS ORDERED: ENOXAPARIN 40MG/0.4ML SYR SUBCUT SCH (09:00)
[2023-02-12] MEDS ORDERED: PIPERACILLIN/TAZ 3.375G PREMIX 50 ML IV SCH (09:00)
[2023-02-12] MEDS ORDERED: VANCOMYCIN 750MG PREMIX 150 ML IV SCH ×2 (10:00→22:00)
[2023-02-12] MEDS ORDERED: MAGN400T26 PO (12:34)
[2023-02-12] MEDS ORDERED: HYDR-4134 PO (12:34)
[2023-02-12] MEDS ORDERED: ALLO100T PO (12:34)
[2023-02-12] MEDS ORDERED: ALLO200T PO (12:34)
[2023-02-12] MEDS ORDERED: HYDR200T80 PO (12:34)
[2023-02-12] MEDS ORDERED: NITR0.4T49 SL (12:34)
[2023-02-12] MEDS ORDERED: ATOR20TA PO (12:34)
[2023-02-12] MEDS ORDERED: ZOLP5TAB2 PO (12:34)
[2023-02-12] MEDS ORDERED: LISI20TA31 PO (12:34)
[2023-02-12] MEDS ORDERED: FURO-152 PO (12:34)
[2023-02-12] MEDS ORDERED: ASPI-1497 PO (12:34)
[2023-02-12] MEDS ORDERED: NEBI20TA2 PO (12:34)
[2023-02-12] MEDS ORDERED: CLOP-31 PO (12:36)
[2023-02-12] MEDS ORDERED: CYCL30DR OP (12:36)
[2023-02-12] MEDS ORDERED: PROP10DR4 EACHEYE (12:38)
[2023-02-12] MEDS: IPRATROPIUM/ALBUTEROL 0.5-3(2.5)MG/3ML NEB HHN SCH ×3 (12:45→20:34)
[2023-02-12] MEDS ORDERED: SODIUM CHLORIDE 0.9% 1,000 ML IV NR (15:00)
[2023-02-12] MEDS ORDERED: POTASSIUM CHLORIDE 20MEQ/PACKET GT NR (17:00)
[2023-02-12] MEDS: MEROPENEM 1,000 MG in SODIUM CHLORIDE 0.9% 100 ML IV SCH (17:04)
[2023-02-12 18:08] LABS: CREATINE KINASE 18 IU/L (39-308); CREATINE KINASE MB FRACTION 1.2 ng/mL (0.5-3.6)
[2023-02-12] MEDS: LACTATED RINGERS 1,000 ML IV SCH (19:15)
[2023-02-12] MEDS ORDERED: PIPERACILLIN/TAZOBACTAM 3.375 G in DEXTROSE 5% WATER 50 ML IV SCH (22:00)
[2023-02-13] VITALS (13 sets, daily range): BP systolic 90–138; BP diastolic 55–79
[2023-02-13] MEDS: MEROPENEM 1,000 MG in SODIUM CHLORIDE 0.9% 100 ML IV SCH ×4 (00:32→20:29)
[2023-02-13 00:54] LABS: CREATINE KINASE MB FRACTION 1.9 ng/mL (0.5-3.6)
[2023-02-13] MEDS: IPRATROPIUM/ALBUTEROL 0.5-3(2.5)MG/3ML NEB HHN SCH ×6 (00:59→20:47)
[2023-02-13] MEDS: LACTATED RINGERS 1,000 ML IV SCH (05:33)
[2023-02-13 07:09] LABS: HEMATOCRIT. 23.1 % (42.0-52.0); HEMOGLOBIN. 7.2 g/dL (14.0-18.0); MEAN CORPUSCULAR HEMOGLOBIN 24.4 pg (28.0-32.0); MEAN CORPUSCULAR VOLUME 78.8 fL (80.0-94.0); MEAN PLATELET VOLUME 7.1 fl (7.4-10.4); PLATELET 366 x1000/uL (130-400); RED BLOOD CELL COUNT 2.93 mill/uL (4.7-6.1); RED CELL DISTRIBUTION WIDTH 17.6 % (11.6-14.6)
[2023-02-13 07:27] LABS: CHLORIDE 118 mEq/L (98-107)
[2023-02-13 07:36] LABS: CREATINE KINASE 19 IU/L (39-308)
[2023-02-13] MEDS ORDERED: ENOXAPARIN 30MG/0.3ML SYR SUBCUT SCH (09:00)
[2023-02-13] MEDS: KCL 20MEQ/100ML PREMIX 100 ML IV SCH ×2 (10:41→13:09)
[2023-02-13] MEDS: DEXTROSE 5% WATER 1,000 ML IV SCH ×2 (10:41→23:00)
[2023-02-13] MEDS: VANCOMYCIN 750MG PREMIX 150 ML IV SCH ×2 (13:08→23:08)
[2023-02-13] MEDS: ACETAMINOPHEN 650MG/20.3ML UDC PO PRN (17:46)
[2023-02-13] MEDS ORDERED: CARVEDILOL 3.125 MG TABLET PO SCH (18:15)
[2023-02-13] MEDS ORDERED: DOCUSATE SODIUM 100MG CAPSULE PO PRN (18:15)
[2023-02-13] MEDS ORDERED: METOPROLOL TARTRATE 5MG/5ML VIAL IV NR (18:30)
[2023-02-13] MEDS ORDERED: MAGNESIUM 4 G PREMIX 100 ML IV NR (19:30)
[2023-02-13] MEDS ORDERED: POTASSIUM PHOS,M-BASIC-D-BASIC 10 MMOL in DEXT 5% WATER 246.6667 ML IV NR (20:00)
[2023-02-13] MEDS ORDERED: METOPROLOL TARTRATE 25MG TABLET PO SCH (21:00)
[2023-02-13] MEDS: FAMOTIDINE 20MG/2ML VIAL IV SCH (23:08)
[2023-02-14] VITALS (16 sets, daily range): BP systolic 98–119; BP diastolic 59–76
[2023-02-14] MEDS: IPRATROPIUM/ALBUTEROL 0.5-3(2.5)MG/3ML NEB HHN SCH ×6 (00:15→20:37)
[2023-02-14 03:23] LABS: BASOPHILS % 0.1 % (0.0-2.0); EOSINOPHILS % 0.1 % (0.0-5.0); HEMATOCRIT. 22.2 % (42.0-52.0); LYMPHOCYTES % 10.1 % (20.0-50.0); MEAN CORPUSCULAR HEMOGLOBIN 24.5 pg (28.0-32.0); MEAN CORPUSCULAR VOLUME 78.6 fL (80.0-94.0); MONOCYTES % 5.8 % (2.0-8.0); NEUTROPHILS % 83.9 % (40.0-76.0); PLATELET 366 x1000/uL (130-400); RED BLOOD CELL COUNT 2.83 mill/uL (4.7-6.1); RED CELL DISTRIBUTION WIDTH 17.9 % (11.6-14.6)
[2023-02-14 03:32] LABS: CHLORIDE 121 mEq/L (98-107)
[2023-02-14 03:49] LABS: CREATINE KINASE 36 IU/L (39-308)
[2023-02-14 04:05] LABS: HEMOGLOBIN. 6.9 g/dL (14.0-18.0)
[2023-02-14] MEDS: VANCOMYCIN 750MG PREMIX 150 ML IV SCH (06:44)
[2023-02-14 07:50] LABS: PLATELET ESTIMATE NORMAL
[2023-02-14] MEDS ORDERED: POTASSIUM CHLORIDE 20MEQ TABLET SR PO NR (08:45)
[2023-02-14] MEDS: MEROPENEM 1,000 MG in SODIUM CHLORIDE 0.9% 100 ML IV SCH ×2 (10:07→16:03)
[2023-02-14 11:05] LABS: PHOSPHORUS 2.2 mg/dL (2.5-4.9)
[2023-02-14] MEDS: DEXTROSE 5% WATER 1,000 ML IV SCH (11:43)
[2023-02-14] MEDS: VANCOMYCIN 500MG PREMIX 100 ML IV SCH (17:26)
[2023-02-14 19:48] LABS: HEMATOCRIT 23.7 % (42.0-52.0); HEMOGLOBIN 7.5 g/dL (14.0-18.0)
[2023-02-14] MEDS: FAMOTIDINE 20MG/2ML VIAL IV SCH (20:43)
[2023-02-14] MEDS: ACETAMINOPHEN 650MG/20.3ML UDC PO PRN (21:14)
[2023-02-15] VITALS (13 sets, daily range): BP systolic 90–112; BP diastolic 62–92
[2023-02-15] MEDS: DEXTROSE 5% WATER 1,000 ML IV SCH ×2 (00:06→14:11)
[2023-02-15] MEDS: MEROPENEM 1,000 MG in SODIUM CHLORIDE 0.9% 100 ML IV SCH ×2 (00:06→10:11)
[2023-02-15] MEDS: IPRATROPIUM/ALBUTEROL 0.5-3(2.5)MG/3ML NEB HHN SCH ×6 (00:34→22:15)
[2023-02-15] MEDS: VANCOMYCIN 500MG PREMIX 100 ML IV SCH (05:23)
[2023-02-15 07:42] LABS: HEMATOCRIT. 26.3 % (42.0-52.0); HEMOGLOBIN. 8.3 g/dL (14.0-18.0); MEAN CORPUSCULAR HEMOGLOBIN 25.6 pg (28.0-32.0); MEAN CORPUSCULAR VOLUME 81.1 fL (80.0-94.0); MEAN PLATELET VOLUME 7.5 fl (7.4-10.4); PLATELET 336 x1000/uL (130-400); RED BLOOD CELL COUNT 3.24 mill/uL (4.7-6.1); RED CELL DISTRIBUTION WIDTH 17.7 % (11.6-14.6)
[2023-02-15 07:43] LABS: CHLORIDE 115 mEq/L (98-107)
[2023-02-15 07:56] LABS: CREATINE KINASE 48 IU/L (39-308)
[2023-02-15 11:56] LABS: PLATELET ESTIMATE NORMAL
[2023-02-15] MEDS: LINEZOLID 600 MG PREMIX 300 ML IV SCH (13:32)
[2023-02-15] MEDS: CEFEPIME 2,000 MG in DEXT 5% WATER 100 ML IV SCH (16:27)
[2023-02-15] MEDS: FAMOTIDINE 20MG/2ML VIAL IV SCH (21:10)
[2023-02-16] VITALS (12 sets, daily range): BP systolic 94–117; BP diastolic 62–83
[2023-02-16] MEDS: IPRATROPIUM/ALBUTEROL 0.5-3(2.5)MG/3ML NEB HHN SCH ×4 (01:30→20:28)
[2023-02-16] MEDS: LINEZOLID 600 MG PREMIX 300 ML IV SCH ×2 (02:57→13:00)
[2023-02-16] MEDS: DEXTROSE 5% WATER 1,000 ML IV SCH ×2 (03:42→16:17)
[2023-02-16] MEDS: CEFEPIME 2,000 MG in DEXT 5% WATER 100 ML IV SCH ×2 (05:23→17:43)
[2023-02-16 06:40] LABS: HEMOGLOBIN. 7.3 g/dL (14.0-18.0); MEAN CORPUSCULAR HEMOGLOBIN 25.5 pg (28.0-32.0); MEAN CORPUSCULAR VOLUME 80.3 fL (80.0-94.0); MEAN PLATELET VOLUME 7.7 fl (7.4-10.4); PLATELET 288 x1000/uL (130-400); RED BLOOD CELL COUNT 2.87 mill/uL (4.7-6.1); RED CELL DISTRIBUTION WIDTH 18.1 % (11.6-14.6)
[2023-02-16 07:14] LABS: CHLORIDE 107 mEq/L (98-107)
[2023-02-16 07:21] LABS: CREATINE KINASE 40 IU/L (39-308)
[2023-02-16] MEDS ORDERED: POTASSIUM CHLORIDE 20MEQ TABLET SR PO NR (08:45)
[2023-02-16] MEDS: KCL 20MEQ/100ML PREMIX 100 ML IV SCH ×2 (10:37→12:44)
[2023-02-16 13:07] LABS: PLATELET ESTIMATE NORMAL
[2023-02-16] MEDS: FAMOTIDINE 20MG/2ML VIAL IV SCH (20:22)
[2023-02-17] VITALS (17 sets, daily range): BP systolic 95–128; BP diastolic 52–81
[2023-02-17] MEDS: IPRATROPIUM/ALBUTEROL 0.5-3(2.5)MG/3ML NEB HHN SCH ×4 (01:37→20:31)
[2023-02-17] MEDS: LINEZOLID 600 MG PREMIX 300 ML IV SCH ×2 (02:00→13:36)
[2023-02-17] MEDS: CEFEPIME 2,000 MG in DEXT 5% WATER 100 ML IV SCH ×2 (06:24→17:53)
[2023-02-17] MEDS: DEXTROSE 5% WATER 1,000 ML IV SCH ×2 (06:24→20:15)
[2023-02-17 08:10] LABS: MEAN CORPUSCULAR HEMOGLOBIN 25.3 pg (28.0-32.0); MEAN CORPUSCULAR VOLUME 79.7 fL (80.0-94.0); MEAN PLATELET VOLUME 8.2 fl (7.4-10.4); PLATELET 300 x1000/uL (130-400); RED BLOOD CELL COUNT 2.74 mill/uL (4.7-6.1); RED CELL DISTRIBUTION WIDTH 17.8 % (11.6-14.6)
[2023-02-17 08:18] LABS: HEMOGLOBIN. 6.9 g/dL (14.0-18.0)
[2023-02-17 08:19] LABS: HEMATOCRIT. 21.8 % (42.0-52.0)
[2023-02-17 08:39] LABS: CHLORIDE 105 mEq/L (98-107)
[2023-02-17 08:48] LABS: PHOSPHORUS 2.6 mg/dL (2.5-4.9)
[2023-02-17 09:49] LABS: PLATELET ESTIMATE NORMAL
[2023-02-17] MEDS ORDERED: POTASSIUM CHLORIDE 20MEQ TABLET SR PO NR (13:00)
[2023-02-17 18:24] LABS: HEMATOCRIT. 25.8 % (42.0-52.0); HEMOGLOBIN. 8.3 g/dL (14.0-18.0); MEAN CORPUSCULAR HEMOGLOBIN 26.4 pg (28.0-32.0); MEAN CORPUSCULAR VOLUME 81.9 fL (80.0-94.0); MEAN PLATELET VOLUME 8.1 fl (7.4-10.4); PLATELET 299 x1000/uL (130-400); RED BLOOD CELL COUNT 3.15 mill/uL (4.7-6.1); RED CELL DISTRIBUTION WIDTH 18.3 % (11.6-14.6)
[2023-02-17 18:39] LABS: INR 1.2; PROTHROMBIN TIME 12.7 sec (9.6-11.0)
[2023-02-17 19:33] LABS: PLATELET ESTIMATE NORMAL
[2023-02-17] MEDS: FAMOTIDINE 20MG/2ML VIAL IV SCH (20:16)
[2023-02-18] VITALS (11 sets, daily range): BP systolic 99–124; BP diastolic 60–85
[2023-02-18] MEDS: LINEZOLID 600 MG PREMIX 300 ML IV SCH ×2 (01:48→15:00)
[2023-02-18] MEDS: IPRATROPIUM/ALBUTEROL 0.5-3(2.5)MG/3ML NEB HHN SCH ×4 (02:00→20:48)
[2023-02-18] MEDS: CEFEPIME 2,000 MG in DEXT 5% WATER 100 ML IV SCH ×2 (06:17→20:14)
[2023-02-18 14:42] LABS: BG BASE EXCESS 8.6 mmol/L (-2.0-2.0); BG CARBOXYHEMOGLOBIN 0.3 % (0.5-1.5); BG DEOXYHEMOGLOBIN 1.7 % (0.0-5.0); BG FRACTION INSPIRED OXYGEN 40; BG HCO3 ACT 31.9 mmol/L (22.0-26.0); BG METHEMOGLOBIN 0.5 % (0.0-1.5); BG OXYGEN SATURATION 98.3 % (92.0-98.5); BG OXYHEMOGLOBIN 97.5 % (94.0-97.0); BG PCO2 38.9 mmHg (35.0-45.0); BG PH 7.532 (7.350-7.450); BG SAMPLE SITE RIGHT BRACHIAL; BG TOTAL HEMOGLOBIN 9.4 g/dL (12.0-18.0); BG TOTAL RESPIRATORY RATE 20 b/min; BG VENT MODE VENT - AC
[2023-02-18] MEDS: DEXTROSE 5% WATER 1,000 ML IV SCH ×2 (15:00→22:47)
[2023-02-18] MEDS: FAMOTIDINE 20MG/2ML VIAL IV SCH (22:41)
[2023-02-19] VITALS (15 sets, daily range): BP systolic 86–113; BP diastolic 52–76
[2023-02-19] MEDS: IPRATROPIUM/ALBUTEROL 0.5-3(2.5)MG/3ML NEB HHN SCH ×3 (02:20→14:25)
[2023-02-19] MEDS: LINEZOLID 600 MG PREMIX 300 ML IV SCH ×2 (04:53→14:56)
[2023-02-19] MEDS: CEFEPIME 2,000 MG in DEXT 5% WATER 100 ML IV SCH (06:12)
[2023-02-19 07:39] LABS: BASOPHILS % 0.5 % (0.0-2.0); EOSINOPHILS % 1.9 % (0.0-5.0); HEMATOCRIT. 25.9 % (42.0-52.0); HEMOGLOBIN. 8.9 g/dL (14.0-18.0); LYMPHOCYTES % 7.9 % (20.0-50.0); MEAN CORPUSCULAR HEMOGLOBIN 27.8 pg (28.0-32.0); MEAN CORPUSCULAR VOLUME 80.7 fL (80.0-94.0); MEAN PLATELET VOLUME 7.9 fl (7.4-10.4); MONOCYTES % 7.8 % (2.0-8.0); NEUTROPHILS % 81.9 % (40.0-76.0); PLATELET 322 x1000/uL (130-400); RED CELL DISTRIBUTION WIDTH 18.5 % (11.6-14.6)
[2023-02-19 08:01] LABS: CHLORIDE 96 mEq/L (98-107)
[2023-03-01] MEDS ORDERED: MEROPENEM 1000MG in NORMAL SALINE 100ML IV SCH (06:00)
== END 2023-02-19 16:30 | DRG 720 ==
LOC: ER 03:05 → 5EST 04:09 → EDBEDREQ 04:28 → EDBEDREQTM 04:28 → EDBEDREQSVC 04:28
PROVIDERS: ADMIT Internal Medicine; ATTEND Internal Medicine
PROC: 5A1955Z Respiratory Ventilation, Greater than 96 Consecutive Hours (ICD-10-PCS; principal; 2023-02-12)
PROC: 0BH17EZ Insertion of Endotracheal Airway into Trachea, Via Natural or Artificial Opening (ICD-10-PCS; 2023-02-12)
PROC: 06HY33Z Insertion of Infusion Device into Lower Vein, Percutaneous Approach (ICD-10-PCS; 2023-02-12)
PROC: B54CZZA Ultrasonography of Left Lower Extremity Veins, Guidance (ICD-10-PCS; 2023-02-12)
PROC: 30233N1 Transfusion of Nonautologous Red Blood Cells into Peripheral Vein, Percutaneous Approach (ICD-10-PCS; 2023-02-14)
PROC: 02HV33Z Insertion of Infusion Device into Superior Vena Cava, Percutaneous Approach (ICD-10-PCS; 2023-02-17)
PROC: B548ZZA Ultrasonography of Superior Vena Cava, Guidance (ICD-10-PCS; 2023-02-17)
DX: A41.50 Gram-negative sepsis, unspecified (principal); N17.0 Acute kidney failure with tubular necrosis; J96.20 Acute and chronic respiratory failure, unspecified whether with hypoxia or hypercapnia; R65.21 Severe sepsis with septic shock; G82.50 Quadriplegia, unspecified; E43 Unspecified severe protein-calorie malnutrition; J15.1 Pneumonia due to Pseudomonas; L89.154 Pressure ulcer of sacral region, stage 4; G20 Parkinson's disease; G92.8 Other toxic encephalopathy; E83.39 Other disorders of phosphorus metabolism; D64.9 Anemia, unspecified; E11.9 Type 2 diabetes mellitus without complications; N39.0 Urinary tract infection, site not specified; B96.20 Unspecified Escherichia coli [E. coli] as the cause of diseases classified elsewhere; Z20.822 Contact with and (suspected) exposure to COVID-19; E83.42 Hypomagnesemia; E87.0 Hyperosmolality and hypernatremia; G93.40 Encephalopathy, unspecified; R13.10 Dysphagia, unspecified; R79.89 Other specified abnormal findings of blood chemistry; E87.6 Hypokalemia; K21.9 Gastro-esophageal reflux disease without esophagitis; Z86.19 Personal history of other infectious and parasitic diseases; Z99.11 Dependence on respirator [ventilator] status; Z87.01 Personal history of pneumonia (recurrent); Z86.73 Personal history of transient ischemic attack (TIA), and cerebral infarction without residual deficits; Z93.1 Gastrostomy status; Z68.1 Body mass index [BMI] 19.9 or less, adult
CPT/HCPCS: 36415; 36573; 36600; 71045; 80048; 80053; 80202; 81003; 82040; 82270; 82375; 82550; 82553; 82805; 82962; 83605; 83735; 84100; 84134; 84145; 84484; 85014; 85018; 85025; 85384; 85651; 86850; 86900; 86920; 87070; 87077; 87186; 87426; 93005; 94002; 94003; 94640; 99291; C1725; J0692; J1650; J2020; J2185; J2270; J2543; J3370; J3475; J3480; J3490; J7030; J7050; J7060; J7070; J7120; P9016